=== PATIENT | female | born 1995 | race Caucasian/White ===

== ENCOUNTER 2022-11-11 00:27 | Emergency (ER) | payer OTHER ==
[2022-11-11] MEDS ORDERED: Ketorolac Tromethamine 30 MG/ML VIAL ONE (02:03)
== END 2022-11-11 02:08 | disposition home or self-care (01) ==
LOC: ERS 00:27
DX: K02.9 Dental caries, unspecified (principal)
CPT/HCPCS: 96372; 99282; J1885

== ENCOUNTER 2022-11-22 05:53 | Emergency (ER) | payer OTHER | END 2022-11-22 06:40 | disposition home or self-care (01) | LOC: ERS 05:53 | DX: B34.9 Viral infection, unspecified (principal); Z20.822 Contact with and (suspected) exposure to COVID-19 | CPT/HCPCS: 87804; 99283; U0003; U0005 ==